=== PATIENT | female | born 1995 | race Hispanic/Latino ===

== ENCOUNTER 2022-03-11 13:21 | Emergency (ER) | payer BC ==
[~2022-03-11] VITALS: Ht 152.4 cm; Wt 86.2 kg
[2022-03-11] MEDS ORDERED: KETOROLAC TROMETHAMINE 30 MG/ML VIAL IV STA (13:52)
[2022-03-11] MEDS ORDERED: KETOROLAC TROMETHAMINE 30 MG/ML VIAL ONE (14:47)
[2022-03-11] MEDS ORDERED: KETOROLAC TROME10 MG PO (16:56)
== END 2022-03-11 17:30 | disposition home or self-care (01) ==
LOC: FSED 13:52
DX: R10.11 Right upper quadrant pain (principal); K80.80 Other cholelithiasis without obstruction
CPT/HCPCS: 74176; 76705; 80053; 81003; 81025; 85025; 96374; 99284; J1885